=== PATIENT | female | born 1980 | race Caucasian/White ===

== ENCOUNTER 2018-05-06 06:44 | Day surgery (SDC) | payer OTHER ==
[~2018-05-06] VITALS: Ht 160 cm; Wt 95.5 kg
[~2018-05-06 06:44] MED LIST: IBUP-2070 PO; SODIUM CHLORIDE 0.9% 1,000 ML IV ONE; TIOT185 IH
[2018-05-06] MEDS ORDERED: BENZOCAINE 20% 50 MCG/SPRAY 57 GM TP ONE (06:45)
[2018-05-06] MEDS ORDERED: LIDOCAINE 4% 50 ML SOLUTION TP ONE (06:45)
[2018-05-06] MEDS ORDERED: LIDOCAINE 2% 30 ML JELLY TP ONE (06:45)
[2018-05-06] MEDS ORDERED: ALBUTEROL SULFATE 2.5 MG/0.5 ML NEB SOLUTION NEB ONE (06:45)
[2018-05-06] MEDS ORDERED: SODIUM CHLORIDE 0.9% 1,000 ML IV ONE (07:30)
[2018-05-06] MEDS ORDERED: MIDAZOLAM HCL 2 MG/2 ML VIAL ONE (08:08)
[2018-05-06] MEDS ORDERED: FentaNYL CITRATE-PF 100 MCG/2 ML VIAL ONE (08:08)
[2018-05-06] MEDS ORDERED: MethylPREDNISolone SOD SUCC 125 MG/2 ML VIAL ONE (09:37)
[2018-05-06] MEDS ORDERED: MethylPREDNISolone SOD SUCC 125 MG/2 ML VIAL IVP ONE (09:45)
[2018-05-06] MEDS ORDERED: OXYGEN THERAPY IH SCH (20:00)
== END 2018-05-06 11:05 | disposition home or self-care (01) ==
LOC: SURGERY 06:44
PROVIDERS: ATTEND Internal Medicine Critical Care Medicine
DX: J38.4 Edema of larynx (principal); J84.111 Idiopathic interstitial pneumonia, not otherwise specified; J98.8 Other specified respiratory disorders; J44.9 Chronic obstructive pulmonary disease, unspecified; I10 Essential (primary) hypertension; E78.00 Pure hypercholesterolemia, unspecified; F17.210 Nicotine dependence, cigarettes, uncomplicated; F12.21 Cannabis dependence, in remission; Z79.4 Long term (current) use of insulin; Z88.6 Allergy status to analgesic agent; Z90.49 Acquired absence of other specified parts of digestive tract; Z72.89 Other problems related to lifestyle; Z79.899 Other long term (current) drug therapy
CPT/HCPCS: 31623; 31624; 71045; 87015; 87070; 87205; 87206; 87220; 88108; 88312; 99152; J2250; J2930; J3010; J7030